=== PATIENT | female | born 1955 | race Two or more races ===

== ENCOUNTER → 2025-06-30 | Outpatient (CLI) | payer OTHER ==
[2025-06-30 10:28] LABS: Hemoglobin 12.1 g/dL (12.2-16.2); Mean Corpuscular Hemoglobin 24.3 pg (28.0-32.0); Nucleated Red Blood Cells % 0.0 %
[2025-06-30 10:30] LABS: Hematocrit 37.9 % (36.0-46.0); Mean Corpuscular Volume 76.2 fL (80.0-100.0)
[2025-06-30 11:09] LABS: Alanine Aminotransferase 12 U/L (7-40); Alkaline Phosphatase 111 U/L (46-116); Anion Gap 9 (5-15); Calcium 9.1 mg/dL (8.7-10.4); Carbon Dioxide 29 mmol/L (20-31); Chloride 104 mmol/L (98-107); Potassium 4.3 mmol/L (3.5-5.1); Sodium 142 mmol/L (136-145); Uric Acid 5.5 mg/dL (3.1-7.8)
[2025-06-30 11:10] LABS: BUN/Creatinine Ratio 20.3 (10.0-20.0); Blood Urea Nitrogen 14 mg/dL (9-23); Magnesium 1.8 mg/dL (1.6-2.6); Total Protein 7.1 g/dL (5.7-8.2)
[2025-06-30 11:11] LABS: Albumin 4.3 g/dL (3.2-4.8)
[2025-06-30 11:30] LABS: Glucose 126 mg/dL (74-106)
[2025-06-30 11:31] LABS: Urine Protein, UAD Negative (Negative)
[2025-06-30 15:58] LABS: Triglycerides 66 mg/dL (< 150)
[2025-06-30 16:00] LABS: Bilirubin, Total 0.4 mg/dL (0.2-1.0); Cholesterol 187 mg/dL (< 200); HDL Cholesterol 48 mg/dL (40-59)
== END | disposition home or self-care (01) ==
LOC: LAB 10:00
PROVIDERS: ATTEND Internal Medicine
DX: E11.9 Type 2 diabetes mellitus without complications (principal); E78.49 Other hyperlipidemia; E61.2 Magnesium deficiency; E79.0 Hyperuricemia without signs of inflammatory arthritis and tophaceous disease; E55.9 Vitamin D deficiency, unspecified; D51.9 Vitamin B12 deficiency anemia, unspecified; R82.79 Other abnormal findings on microbiological examination of urine; R82.90 Unspecified abnormal findings in urine; R82.998 Other abnormal findings in urine; R94.6 Abnormal results of thyroid function studies; R68.89 Other general symptoms and signs
CPT/HCPCS: 36415; 80053; 80061; 81001; 82306; 82607; 82746; 83036; 83735; 84443; 84480; 84550; 85025; 87086